=== PATIENT | female | born 1950 | race Caucasian/White ===

== ENCOUNTER → 2017-02-12 | Day surgery (SDC) | payer OTHER ==
[~2017-02-12] VITALS: Ht 170.2 cm; Wt 86.2 kg
[~2017-02-12] MED LIST: AMLODIPINE BES2.5 M1 PO; DILAUDID 4 MG TA4 MG PO; FLOMAX(MONOGRA0.4 MG PO; IMITREX50 M1 PO; LEVOTHYROXINE125 MCG PO; PROPRANOLOL HCL40 M1 PO; PROPRANOLOL HCL80 M2 PO; ZOFRAN ODT4 MG PO
--- NOTE | 2017-02-12 16:07 | Operative Report ---
Operative/Inv Procedure Report Surgery Date: 02/12/17 Name of Procedure: left renal ESWL; fluorosocpy Pre-Operative Diagnosis: left stone and colic Post-Operative Diagnosis: same Estimated Blood Loss: none Surgeon/Dental Biller: WANDA JEAN MD Anesthesia: moderate sedation Complications: none Operative/Procedure Note Note: The patient was taken to the operating room and placed on the ESWL table in supine position. Timeout was performed, with the patient awake, in order to confirm correct patients identity, procedure, laterality, anesthesia, and other pertinent perioperative information. After adequate anesthesia and antibiotics, the patient was then positioned so that the LEFT Flank was exposed over the ESWL table's cut-out, overlying the dome of the shockwave generator. Fluroscopy, as well as renal US, was used to locate the stone, and LEFT stent. Using fluoroscopy with AP, and oblique views, the position of the left renal stone was confirmed and optimized in the crosshairs. The stone was approximately 8 mm in size, and was faintly visible on fluroscopy. Renal ultrasound was also performed on the left side, confirming the presence of the left stone and no hydronephrosis, with normal parenchyma, and no solid tumor. Flurosocpy was used in an AP and oblique views to maximize the position of the stone for ESWL. After optimized positioning, ESWL was initiated at low power levels. After noting the patient's tolerance to the shockwaves, the power was maximized. The renal stone was noted to bounce/move with each shockwave with real-time renal US visualization. Toward the end of the procedure, the composition of the left stones had changed significantly, indicating the breaking of the left renal stone. A total of 2500 shockwaves were delivered to the stone. The pt. tolerated the procedure well and taken to in satisfactory condition. Discharge Disposition: Same Day Admissions CC: WANDA JEAN MD
== END ==
LOC: STS 07:00
DX: N20.0 Calculus of kidney (principal); N23 Unspecified renal colic; I10 Essential (primary) hypertension; E03.9 Hypothyroidism, unspecified
CPT/HCPCS: 36415; 93005; 93010; J2250